=== PATIENT | male | born 1955 | race Caucasian/White ===

== ENCOUNTER → 2016-05-11 | Outpatient (CLI) | payer BC ==
[~2016-05-11] MED LIST: CMD5 PO; VNTHFA/IN INH; WARF5TAB7 PO
--- NOTE | 2016-05-11 14:23 | DIAGNOSTIC IMAGING REPORT ---
RIGHT FINGER(S) MIN 2 VIEWS ROUTINE CLINICAL HISTORY: Right thumb pain. Trigger thumb COMPARISON: None. DISCUSSION: No fractures or subluxations are visualized. There are mild degenerative changes the level the first metacarpal phalangeal joint. There are no erosive or destructive changes. If there is clinical concern over the presence of a ligamentous injury, stress views or an MRI could be obtained in follow-up IMPRESSION: No fractures or subluxations identified. Electronically signed by: Ru Rasmussen M.D. 05/11/2016 2:21 PM Dictated Date/Time: 05/11/2016 2:19 PM
== END | disposition home or self-care (01) ==
LOC: C.RAD1850 14:05
PROVIDERS: ATTEND Allergy & Immunology Allergy
DX: M79.646 Pain in unspecified finger(s) (principal); M65.319 Trigger thumb, unspecified thumb

== ENCOUNTER → 2016-05-30 | Outpatient (CLI) | payer BC ==
--- NOTE | 2016-06-04 19:24 | POLYSOMNOGRAPH REPORT ---
CLINICAL DATA: 60-year-old male with BMI of 30 referred by Augustina Doty and myself with a history of snoring, difficulty falling asleep and awakening still feeling tired. On the evening of 05/30/2016, a home sleep apnea test was performed using a [employer] type 3 monitor. RECORDING RESULTS: Total recording time was 10 hours. The patient's estimated sleep time and patient monitoring time was 7.3 hours. RESPIRATORY DATA: Moderate sleep apnea was documented. The BRIGHT was 16.5. There were 44 obstructive and 1 central apneic episode. There were 75 hypopneic episodes. The longest respiratory event was 47 seconds. OXIMETRY DATA: Nocturnal hypoxemia was seen. Oxygen christiane was 77%. Mean saturation was 92%. Time below 89% was 24 minutes. HEART RATE DATA: Heart rates ranged from 67-84 beats per minute. SNORING DATA: Snoring was recorded throughout the night. IMPRESSION: Moderate sleep apnea/hypopnea with an BRIGHT of 16.5 with nocturnal hypoxemia with an oxygen christiane of 77%. RECOMMENDATIONS: The patient may benefit from a repeat sleep study with CPAP or use of an oral appliance. Clinical correlation is needed. SUSSYD
== END | disposition home or self-care (01) ==
LOC: C.NEUR 09:53
PROVIDERS: ATTEND Allergy & Immunology Allergy
DX: G47.30 Sleep apnea, unspecified (principal); R06.83 Snoring; R09.02 Hypoxemia

== ENCOUNTER → 2016-06-11 | Outpatient (CLI) | payer BC ==
--- NOTE | 2016-06-12 06:28 | PAP/PSG TECHNICIAN REPORT ---
[facility] B Operator Polysomnogram Report Study name: None Report date: 06/12/2016 Study date: 06/11/2016 Referring Physician: Augustina Doty PA-C Name: ZHANNA DUMONT Interpreting Physician: Pramod Hwang M.D. Date of : 1955 B Operator: Afsaneh Hendricks RPSGT. Sex: Male Age: 60 Study Type: PSG PAP Weight: 192 lbs Height: 60 years, Height 5' 7" BMI: 30.07 Medications: WARFARIN 5 MG Patient History 60 yr-old male here for a new CPAP treatment study. He was found to be positive for GALINDO via a home sleep study. His AHI was 16. He chose a Mirage FX Soft edge nasal mask size standard from [employer]. Due to mouth breathing and a stuffy nose, he then switched to a Quattro Air full face mask size medium from [employer]. The test was started on room air and 4 CMH2O. ETCO2 testing was not utilized during this study. Room 1 Parameters Monitored NPSG: E1-M2, E2-M1, Fp1-M2, Fp2-M1, F3-M2, F4-M2, F4-M1, C3-M2, C4-M2, C4-M1, O1-M2, O2-M2, O2-M1, T3-M2, T4-M1, P3-M2, P4-M1, CHIN1, CHIN2, HR, EKG, Legs, PFLOW, SNOR, FLOW, CFLOW, Tidal Volume, THOR, ABDO, SpO2, PLTH, CPRESS, ETCO2 Wave, ETCO2, pH Sleep Architecture Sleep Stages Time at Lights Off 10:26:40 PM STAGES Time (min.) TST (%) Time at Lights On 5:25:40 AM Wake 61.5 -- Total Recording Time (TRT) 419.00 min. N1 23.5 7 Total Sleep Period (TSP) 403.5 min. N2 223.5 63 Total Sleep Time (TST) 357.5min. N3 28.5 8 Awake Time 61.5 min. REM 82.0 23 Wake after Sleep Onset 49.0 min. Sleep Efficiency (SE) 85 % Sleep Onset Latency (RICH) 12.5 min. Number of Stage 1 Shifts None Awakenings 11 Stage Changes 86 Number of REM periods 5 REM 82.0 23 REM Latency 72.5 min. NREM 275.5 77 Body Position Analysis Supine Right Left Side Prone Vertical Total Sleep Time (min.) 221.4 0.0 157.5 157.50 0.0 0.0 Total Sleep Time (%) 56% 0% 44% 44 0% N/A% Total Sleep Time REM (min.) 54.5 0.0 27.5 None 0.0 0.0 Total Sleep Time NREM (min.) 145.5 0.0 130.0 None 0.0 0.0 Intermittent Wake (min.) 21.4 17.1 23.0 None 0.0 0.0 Total Sleep Period (%) 54% None None None None None Arousals Myoclonus (PLM) * Events Count Index Events Count Index Spontaneous 26 4 Events Awake (PLMW) 49 47.8 Respiratory 24 4.2 Events Asleep w/ Arousal (PLMA) 5 0.8 PLM 5 1 Events Asleep w/o Arousal (PLMS) 167 28.0 Snoring 0 0 Total Asleep 172 28.9 Total 55 9 Total 221 32 Respiratory Analysis * CA OA MA CH H RERA Total Count 4 14 0 0 29 0 47 Index 0.7 2.3 0.0 0 4.9 0 7.9 Mean Duration 13.0 22.0 0.0 0.00 24.8 0.0 23.0 Longest Duration 17.6 34.6 0.0 0.00 0.0 0.0 47.9 Respiratory Event Summary Total Supine ~Supine Right Left Prone REM NREM Apneas Count 18 12 6 N/A 6 N/A 0 18 Index 3.0 4 2 N/A 2.3 N/A 0 4 Hypopneas (4% Desat) Count 29 28 1 N/A 1 N/A 3 26 Index 4.9 8.4 0 N/A 0.4 N/A 2.2 5.7 Apneas & All Hypopneas Count 47 40 7 N/A 7 N/A 3 44 Index 7.9 12 3 N/A 3 N/A 2.2 9.6 Respiratory Events ([employer]+All Hyp+RERA) Count 47 40 7 N/A 7 N/A 3 44 Index 7.9 12 3 N/A 2.7 N/A 2.2 9.6 Respiratory Related Arousal Count 24 40 1 N/A 1 N/A 1 24 Index 4.2 7 0 N/A 0 N/A 1 5 Snoring Analysis Supine Right Left Prone REM NREM Total Snore duration 4.6 min Snores count 168 N/A 5 N/A 4 169 173 Snore mean duration 1.6 Sec Snores index 50 N/A 2 N/A 2.9 36.8 29.0 TST with snoring (%) 1.3% Desaturation Event Summary: Minimum %SpO2 Event Count Mean/Min/Max Duration(sec.) Desaturation Index % Time In Bed > 90 61 29.9 / 6.8 / 55.8 11.6 76.6 86 - 90 15 18.8 / 6.8 / 41.0 10.1 21.7 81 - 85 0 N/A 0.0 1.5 76 - 80 0 N/A 0.0 0.3 71 - 75 0 N/A 0.0 0.0 66 - 70 0 N/A 0.0 0.0 61 - 65 0 N/A 0.0 0.0 56 - 60 0 N/A 0.0 0.0 51 - 55 0 N/A 0.0 0.0 < 50 0 N/A 0.0 0.0 Total REM NREM Awake <50% 0.0 min. 0.0 min. 0.0 min. 0.0 min. 51 - 60% 0.0 min. 0.0 min. 0.0 min. 0.0 min. 61 - 70% 0.0 min. 0.0 min. 0.0 min. 0.0 min. 71 - 80% 1.1 min. 0.0 min. 1.1 min. 0.0 min. 81 - 90% 95.5 min. 17.7 min. 75.8 min. 2.0 min. 91 - 100% 315.5 min. 64.3 min. 198.5 min. 52.7 min. Average 92 92 91 93 Minimum SpO2 78 86 78 81 Desaturation Event Index 9.2 3.7 12.2 2.9 # Desat. Events below 89% 44 4 40 0 Time(%) with Saturation below 89% 4.2 0.9 3.0 0.3 Time(min.) with Saturation below 89% 17.2 3.6 12.5 1.1 Time (mins) REM (mins) NREM (mins) % of TST SpO2 Below 90% 54 5 N49 9.6 SpO2 Below 88% 22 0 0 3 Heart Rate Analysis Min (bpm) Max (bpm) Average (bpm) Awake 43 106 86 NREM 72 102 86 REM 74 109 83 Overall 72 109 85 Supplemental O2 Values Minimum O2 level: None Value Start Time End Time B Operator Comments Mr. Dumont slept in the right, left, and supine positions. No cardiac arrhythmias were noted. PLMs were noted. No bruxism noted. CPAP was initiated at +4 CMH2O and up-titrated to a level of +10 CMH2O, Cflex 3. A Quattro Air full face mask size medium from [employer] was used during titration He awoke to use the restroom one time during the night. Mr. Dumont stated that he slept better than usual. The final report will be interpreted and signed by a sleep physician. The completed physician report will then be placed in the patient medical record. Therapy Event: Therapy (cm H20) 4 5 7 9 10 Total Time at Pressure (min.) 124.1 210.0 26.4 19.4 39.1 TST at Pressure (min.) 109.6 175.5 26.4 19.4 26.6 # Periods 1 1 1 1 1 Sleep Onset (min.) 12.5 0.0 0.0 0.0 0.0 REM Onset (min.) 85.0 52.4 N/A 18.0 0.0 Sleep Efficiency % 88 83 100 100 68 Wakefulness (%) 11.7 16.4 0.0 0.0 32.0 Wakefulness (min.) 14.5 34.5 0.0 0.0 12.5 NREM 1 (%) 6.4 4.1 12.9 12.9 2.6 NREM 1 (min.) 8.0 8.6 3.4 2.5 1.0 NREM 2 (%) 49.2 59.0 87.1 79.8 0.0 NREM 2 (min.) 61.1 123.9 23.0 15.5 0.0 NREM 3 (%) 21.0 1.2 0.0 0.0 0.0 NREM 3 (min.) 26.0 2.5 0.0 0.0 0.0 REM (%) 11.7 19.3 0.0 7.3 65.5 REM (min.) 14.5 40.5 0.0 1.4 25.6 # Arousals 14 19 12 6 4 Arousal Index 7.7 6.5 27.2 18.6 9.0 # Snore 5 26 64 75 3 Snore Index 2.7 8.9 145.3 232.0 6.8 AHI 6.6 2.7 36.3 34.0 0.0 AHI Supine 6.7 5.8 36.3 34.0 0.0 AHI Non-Supine 6.5 0.0 N/A N/A N/A NREM AHI 6.9 2.7 36.3 36.7 0.0 REM AHI 4.1 3.0 N/A 0.0 0.0 RDI 6.6 2.7 36.3 34.0 0.0 # Obstructive 2 1 9 2 0 # Central Ap 4 0 0 0 0 # Mixed 0 0 0 0 0 # Hypopneas 6 7 7 9 0 RERAS 0 0 0 0 0 Total Respiratory Events 12 8 16 11 0 Time Below SpO2 89.00% (min.) 3.7 3.4 6.5 2.6 0.0 Mean NREM SpO2 (%) 91 91 90 92 93 Mean REM SpO2 (%) 90 92 N/A 92 93 Mean Sleep SpO2 (%) 91 91 90 92 93 Min NREM SpO2 (%) 82 83 78 78 90 Min REM SpO2 (%) 87 86 N/A 91 91 Position Supine (min.) 45.1 82.5 26.4 19.4 26.6 Position Non-supine (min.) 64.5 93.0 0.0 0.0 0.0 LM Index Sleep 6.6 33.8 90.8 34.0 22.6 LM Index NREM 6.9 40.0 90.8 36.7 60.0 LM Index REM 4.1 13.3 N/A 0.0 21.1 Mean Heart Rate (bpm) 84 86 86 85 84 Min Heart Rate (bpm) 72 74 79 75 76
--- NOTE | 2016-06-12 14:24 | POLYSOMNOGRAPH REPORT ---
CLINICAL DATA: 60-year-old male with BMI of 30 referred by Augustina Doty and myself for a CPAP titration study. He had a home sleep apnea test which showed moderate sleep apnea with an BRIGHT of 16. He chose a Mirage FX soft edge nasal mask size standard from [employer], but due to mouth breathing, he switched to a Quattro full face mask size medium from [employer]. SLEEP ARCHITECTURE: Total sleep period was 403.5 minutes. Total sleep time was 357.5 minutes divided between 275.5 minutes of non-REM sleep and 82 minutes of REM sleep. Sleep onset latency was 12.5 minutes. REM latency was 72.5 minutes. Sleep efficiency was 85%. Wake after sleep onset was 49 minutes. Sleep consisted of stage N1 7%, N2 62%, N3 8%, REM 23%. AROUSAL DATA: 55 arousals were recorded for an index of 9 per hour. PLM DATA: 172 limb movements during sleep were noted for an index of 28.9 per hour with arousal index of 0.8 per hour. RESPIRATORY DATA: The AHI was 7.9. There were 4 central and 14 obstructive apneic episodes. The longest apneic episode was 34.6 seconds. There were 29 hypopneic episodes. The mean duration of hypopnea was 24.8 seconds. OXIMETRY DATA: Nocturnal hypoxemia was seen. Oxygen christiane was 78% during non-REM sleep. The mean saturation was 92%. Time below 88% was 22 minutes. EKG: Heart rates ranged from 72-109 beats per minute. No arrhythmias were noted. [employer] COMMENTS AND TREATMENT SUMMARY: The patient slept in the right, left and supine positions. CPAP was started using the above noted interface and was titrated up to a final pressure setting of 10 cm of water pressure, C-Flex setting #3. At this final pressure setting, he slept for 26.6 minutes with an AHI of 0. IMPRESSION: Moderate obstructive sleep apnea/hypopnea and nocturnal hypoxemia corrected with CPAP 10 cm of water pressure, C-Flex setting #3, Quattro Air full facemask size medium from [employer]. RECOMMENDATIONS: The patient will be started on the above noted treatment regimen and seen back in followup within 90 days to document efficacy and compliance. [facility]
== END | disposition home or self-care (01) ==
LOC: C.NEUR 20:00
PROVIDERS: ATTEND Allergy & Immunology Allergy
DX: R53.83 Other fatigue (principal); R06.83 Snoring

== ENCOUNTER → 2016-11-02 | Outpatient (CLI) | payer BC ==
--- NOTE | 2016-11-02 10:22 | DIAGNOSTIC IMAGING REPORT ---
CHEST 2 VIEWS ROUTINE CLINICAL HISTORY: 61 years-old Male presenting with Cough, history of extensive pulmonary embolic disease. TECHNIQUE: PA and lateral views of the chest were obtained. COMPARISON: 03/11/2015. FINDINGS: Cardiomediastinal silhouette normal. Lungs and pleural spaces clear. Osseous structures and upper abdomen normal. IMPRESSION: 1. No acute cardiopulmonary disease. Electronically signed by: Kieran Monterroso 11/02/2016 10:20 AM Dictated Date/Time: 11/02/2016 10:19 AM
== END | disposition home or self-care (01) ==
LOC: C.RAD1850 09:51
PROVIDERS: ATTEND Physician Assistant Medical
DX: R05 Cough (principal)

== ENCOUNTER 2016-11-22 12:25 | Emergency (ER) | payer BC ==
[~2016-11-22] VITALS: Ht 172.7 cm; Wt 82.0 kg
[~2016-11-22 12:25] MED LIST changes: -VNTHFA/IN INH
[2016-11-22 12:34] VITALS: TEMP 36.4; Ht 172.7 cm; Wt 82.0 kg
[2016-11-22] MEDS ORDERED: SODIUM CHLORIDE 0.9% 1000ML 500 ML IV STA (12:45)
[2016-11-22 12:50] VITALS: O2SAT 98
[2016-11-22 13:02] LABS: BASO % 0.2 %; BASO ABS # 0.01 K/uL (0-0.2); COMPLETE YES; EOS % 1.6 %; HEMATOCRIT 44.7 % (42-52); IG% 0.2 %; LYMPH % 24.8 %; LYMPH ABS # 1.25 K/uL (1.2-3.4); MEAN CELL VOLUME 83.2 fL (80-100); MEAN CORPUSCULAR HEMOGLOBIN 29.1 pg (25-34); MEAN CORPUSCULAR HGB CONC 34.9 g/dl (32-36); MONO % 6.5 %; NEUT % 66.7 %; PLATELET COUNT 214 K/uL (130-400); RED BLOOD COUNT 5.37 M/uL (4.7-6.1); WHITE BLOOD COUNT 5.05 K/uL (4.8-10.8)
[2016-11-22 13:14] LABS: INR 2.5 (0.9-1.1); PARTIAL THROMBOPLASTIN RATIO 1.5; PROTHROMBIN TIME (PATIENT) 27.3 SECONDS (9.0-12.0)
[2016-11-22 13:18] LABS: ALT/SGPT 30 U/L (12-78); BLOOD UREA NITROGEN 14 mg/dl (7-18); BUN/CREATININE RATIO 14.8 (10-20); CALCIUM 9.5 mg/dl (8.5-10.1); CARBON DIOXIDE 28 mmol/L (21-32); CHLORIDE 106 mmol/L (98-107); CREATININE 0.94 mg/dl (0.60-1.40); GLUCOSE 90 mg/dl (70-99); POTASSIUM 3.5 mmol/L (3.5-5.1); SODIUM 142 mmol/L (136-145)
[2016-11-22 13:23] LABS: ALB/GLOB RATIO 1.1 (0.9-2); ALKALINE PHOSPHATASE 69 U/L (45-117); AST/SGOT 18 U/L (15-37)
[2016-11-22] MEDS ORDERED: OPTIRAY 320 IV PRN (13:45)
--- NOTE | 2016-11-22 13:49 | EMERGENCY ROOM VISIT NOTE ---
History Report prepared by Cecil: Delfino Malcolm Under the Supervision of: Dr. Judson Jack M.D. First contact with patient: 12:40 Chief Complaint: RESPIRATORY PROBLEMS Stated Complaint: DIFFICULTY BREATHING, DIZZY History of Present Illness The patient is a 61 year old male who presents to the Emergency Room with complaints of worsening shortness of breath beginning three days ago. The patient states that when he breaths, it feels like he is breathing through a towel or has a plastic bag over his head. He reports that he has a history of a PE, and his current symptoms are similar. The patient notes that he currently takes Warfarin daily, and his last INR check was normal. He states that he flew to [place] a week ago for his daughter's wedding. The patient reports that he did walk around occasionally on the plane. He notes that he became dizzy this morning when he was moving around. The patient states that three weeks ago he had bronchitis and was place on an antibiotic and steroids. He reports that he finished his medications a week ago. The patient denies a cold, cough, congestion, chest pain with breathing, fever, a history of MD and smoking. Source of History: patient Onset: three days ago Position: other (global) Quality: other (shortness of breath) Timing: worsening Associated Symptoms: No cough, No chest pain (upon breathing) Note: Associated symptoms: dizziness Denies: congestion and cold Review of Systems See HPI for pertinent positives & negatives. A total of 10 systems reviewed and were otherwise negative. Past Medical & Surgical Medical Problems: (1) Deep vein blood clot of left lower extremity (2) Pulmonary embolism Family History Patient reports no known family medical history. Social History Smoking Status: Never Smoker Alcohol Use: occasionally Drug Use: none Occupation Status: employed Current/Historical Medications Scheduled Warfarin Sod (Coumadin), 5 MG PO 3XWK Warfarin Sod (Jantoven), 2.5 MG PO 4XWK Allergies Coded Allergies: No Known Allergies (Verified Allergy, Unknown, 06/11/02) Physical Exam Vital Signs Date Time Temp Pulse Resp B/P (MAP) Pulse Ox O2 Delivery O2 Flow Rate FiO2 11/22/16 14:28 72 18 110/65 97 11/22/16 12:57 77 11/22/16 12:54 98 Room Air 11/22/16 12:50 98 Room Air 11/22/16 12:34 36.4 73 18 117/74 98 Room Air Physical Exam GENERAL: Patient is in no acute distress. HEENT: No acute trauma, normocephalic atraumatic, mucous membranes moist, no nasal congestion, no scleral icterus. NECK: No stridor, no adenopathy, no meningismus, trachea is midline. LUNGS: Clear to auscultation bilaterally, no wheeze, no rhonchi, breath sounds equal. HEART: Without murmurs gallops or rubs, regular rate and rhythm. ABDOMEN: Soft, nontender, bowel sounds positive, no hernias, no peritonitis. EXTREMITIES: No cyanosis or edema, full range of motion of all the joints without pain or difficulty, no signs for acute trauma. NEUROLOGIC: Oriented x 3, no acute motor or sensory deficits, no focal weakness. SKIN: No rash, no jaundice, no diaphoresis. Medical Decision & Procedures ER Provider Diagnostic Interpretation: CT results as stated below per my review and radiologist interpretation: (CHEST FOR PE) ANGIO WITH CT DOSE: 322.62 mGy.cm HISTORY: Chest pain dyspnea TECHNIQUE: Multiaxial CT images of the chest were performed following the intravenous administration of contrast to evaluate the pulmonary arteries. Maximal intensity projection images were also obtained. A dose lowering technique was utilized adhering to the principles of ALARA. COMPARISON STUDY: None. FINDINGS: There is a normal caliber thoracic aorta with no evidence for dissection. There is no evidence for pulmonary embolus. No pleural effusions. No pneumothorax. The liver and spleen are unremarkable. No mediastinal or hilar lymphadenopathy. The central airways are patent. The lungs are clear. IMPRESSION: No evidence for pulmonary embolus. . The lungs are clear. The above report was generated using voice recognition software. It may contain grammatical, syntax or spelling errors. Electronically signed by: Ko Nguyen M.D. 11/22/2016 1:57 PM Dictated Date/Time: 11/22/2016 1:54 PM Laboratory Results 11/22/16 12:50 Red Blood Count 5.37, Mean Corpuscular Volume 83.2, Mean Corpuscular Hemoglobin 29.1, Mean Corpuscular Hemoglobin Concent 34.9, Mean Platelet Volume 9.0, Neutrophils (%) (Auto) 66.7, Lymphocytes (%) (Auto) 24.8, Monocytes (%) (Auto) 6.5, Eosinophils (%) (Auto) 1.6, Basophils (%) (Auto) 0.2, Neutrophils # (Auto) 3.37, Lymphocytes # (Auto) 1.25, Monocytes # (Auto) 0.33, Eosinophils # (Auto) 0.08, Basophils # (Auto) 0.01 11/22/16 12:50 Test 11/22/16 12:50 White Blood Count 5.05 K/uL (4.8-10.8) Red Blood Count 5.37 M/uL (4.7-6.1) Hemoglobin 15.6 g/dL (14.0-18.0) Hematocrit 44.7 % (42-52) Mean Corpuscular Volume 83.2 fL (80-100) Mean Corpuscular Hemoglobin 29.1 pg (25-34) Mean Corpuscular Hemoglobin Concent 34.9 g/dl (32-36) Platelet Count 214 K/uL (130-400) Mean Platelet Volume 9.0 fL (7.4-10.4) Neutrophils (%) (Auto) 66.7 % Lymphocytes (%) (Auto) 24.8 % Monocytes (%) (Auto) 6.5 % Eosinophils (%) (Auto) 1.6 % Basophils (%) (Auto) 0.2 % Neutrophils # (Auto) 3.37 K/uL (1.4-6.5) Lymphocytes # (Auto) 1.25 K/uL (1.2-3.4) Monocytes # (Auto) 0.33 K/uL (0.11-0.59) Eosinophils # (Auto) 0.08 K/uL (0-0.5) Basophils # (Auto) 0.01 K/uL (0-0.2) RDW Standard Deviation 39.1 fL (36.4-46.3) RDW Coefficient of Variation 13.2 % (11.5-14.5) Immature Granulocyte % (Auto) 0.2 % Immature Granulocyte # (Auto) 0.01 K/uL (0.00-0.02) Prothrombin Time 27.3 SECONDS (9.0-12.0) Prothromb Time International Ratio 2.5 (0.9-1.1) Activated Partial Thromboplast Time 38.8 SECONDS (21.0-31.0) Partial Thromboplastin Ratio 1.5 Anion Gap 8.0 mmol/L (3-11) Est Creatinine Clear Calc Drug Dose 77.8 ml/min Estimated GFR () 99.6 Estimated GFR (Non- 85.9 BUN/Creatinine Ratio 14.8 (10-20) Calcium Level 9.5 mg/dl (8.5-10.1) Total Bilirubin 0.9 mg/dl (0.2-1) Aspartate Amino Transf (AST/SGOT) 18 U/L (15-37) Alanine Aminotransferase (ALT/SGPT) 30 U/L (12-78) Alkaline Phosphatase 69 U/L (45-117) Troponin I < 0.015 ng/ml (0-0.045) Total Protein 7.2 gm/dl (6.4-8.2) Albumin 3.7 gm/dl (3.4-5.0) Globulin 3.5 gm/dl (2.5-4.0) Albumin/Globulin Ratio 1.1 (0.9-2) Laboratory results reviewed by me. Medications Administered Medications (Trade) Dose Ordered Sig/Jay Route Start Time Stop Time Status Last Admin Dose Admin Sodium Chloride 500 ml @ 999 mls/hr Q31M STAT IV 11/22/16 12:45 11/22/16 13:15 DC 11/22/16 12:45 999 MLS/HR Albuterol (Ventolin Hfa Inhaler) 60 puffs STK-MED ONCE INH 11/22/16 14:20 11/22/16 14:21 DC 11/22/16 14:28 60 PUFFS ECG Indication: SOB/dyspnea Rate (beats per minute): 81 Rhythm: normal sinus Findings: no acute ischemic change, no ectopy ED Course 1241: The patient was evaluated in room C08. A complete history and physical exam was performed. 1245: Ordered Sodium Chloride 500 ml @ 999 mls/hr IV 1413: Reevaluated the patient. Discussed results and discharge instructions: he verbalized understanding and agreement. The patient is ready for discharge when he receives his medication. 1420: Ordered Albuterol 60 puffs INH Medical Decision Differential diagnosis includes: pulmonary emboli, bronchitis, CHF, pneumonia, anemia, dehydration, generalized infection, electrolyte imbalance, MD There is no leukocytosis or concerning anemia. No significant electrolyte abnormality, kidney failure or hepatitis. INR is therapeutic for someone using Coumadin. EKG shows a sinus rhythm, no acute ischemia. Cardiac enzyme testing times one is not consistent with acute cardiac injury. Chest CT does not show PE, there was no pneumonia or evidence for aortic dissection. Patient received IV saline, he has done well. He is not hypoxic, he is not toxic or febrile. The patient was reassured by his testing. As he just had bronchitis, he may be having some residual bronchospasm causing his difficulty breathing. He will be discharged on albuterol to see how he feels in the next couple of days. He will return here for any worsening symptoms. He was advised to follow with his doctor's office. Impression Primary Impression: SOB (shortness of breath) Scribe Attestation The scribe's documentation has been prepared under my direction and personally reviewed by me in its entirety. I confirm that the note above accurately reflects all work, treatment, procedures, and medical decision making performed by me. Departure Information Dispostion Home / Self-Care Referrals Pramod Hwang M.D. (PCP) Forms HOME CARE DOCUMENTATION FORM, WORK / SCHOOL INSTRUCTIONS Patient Instructions My [facility] Report Additional Instructions try albuterol with spacer 2-3 puffs every 6 hours as needed to help the breathing see chery garces in a few days for a recheck return for fever or worsening breathing or chest pain lab testing and CT scan today were ok
--- NOTE | 2016-11-22 13:58 | DIAGNOSTIC IMAGING REPORT ---
(CHEST FOR PE) ANGIO WITH CT DOSE: 322.62 mGy.cm HISTORY: Chest pain dyspnea TECHNIQUE: Multiaxial CT images of the chest were performed following the intravenous administration of contrast to evaluate the pulmonary arteries. Maximal intensity projection images were also obtained. A dose lowering technique was utilized adhering to the principles of ALARA. COMPARISON STUDY: None. FINDINGS: There is a normal caliber thoracic aorta with no evidence for dissection. There is no evidence for pulmonary embolus. No pleural effusions. No pneumothorax. The liver and spleen are unremarkable. No mediastinal or hilar lymphadenopathy. The central airways are patent. The lungs are clear. IMPRESSION: No evidence for pulmonary embolus. . The lungs are clear. The above report was generated using voice recognition software. It may contain grammatical, syntax or spelling errors. Electronically signed by: Ko Nguyen M.D. 11/22/2016 1:57 PM Dictated Date/Time: 11/22/2016 1:54 PM
[2016-11-22] MEDS ORDERED: ALBUTEROL HFA 8 GM INHALER INH ONE (14:20)
[2016-11-22 14:28] VITALS: BP 110/65; PULSE 72; O2SAT 97
[2016-12-12] MEDS ORDERED: VNTHFA/IN INH (13:27)
== END 2016-11-22 14:30 | disposition home or self-care (01) ==
LOC: C.EDB 12:27 → C.EDC 14:30
DX: R06.02 Shortness of breath (principal); I26.99 Other pulmonary embolism without acute cor pulmonale; Z79.01 Long term (current) use of anticoagulants

== ENCOUNTER → 2017-03-18 | Day surgery (SDC) | payer BC ==
[2017-03-05 11:55] VITALS: BMI 26.0
[~2017-03-18] VITALS: Ht 172.7 cm; Wt 79.5 kg
[~2017-03-18] MED LIST changes: +ATROPINE SULFATE 0.1 MG/ML 5ML SYR IV PRN; +ENOX40IN SQ; +EpHEDrine SULFATE INJ 50 MG/ML AMP IV PRN; +PROPOFOL IV EMULSION 10 MG/ML 20 ML VIAL IV ONE; +SODIUM CHLORIDE 0.9% 500ML 500 ML IV ONE; +VNTHFA/IN INH; +WARF-246 PO; -WARF5TAB7 PO
[2017-03-18 14:09] VITALS: Ht 172.7 cm; Wt 79.5 kg
--- NOTE | 2017-03-18 14:30 | Endo History and Physical ---
History & Physical Date of Service: Mar 18, 2017. Chief Complaint: SCREENING FOR COLON CA Referring Physician: DR. LINCOLN MONSIVAIS History of Present Illness 61 yo CM who presents for screening colonoscopy. Past Medical History Pulmonary Emboli, Thrombophlebitis Past Surgical History Hx Cardiac Surgery: No Hx Internal Defibrillator: No Hx Pacemaker: No Hx Abdominal Surgery: Yes (left inguinal hernia repair,) Hx of Implantable Prosthesis: No Hx Post-Op Nausea and Vomiting: No Hx Cancer Surgery: No Hx Thoracic Surgery: No Hx Orthopedic: Yes (right trigger thumb) Hx Urinary Tract Surgery: No Family History None Social History Smoking Status: Never Smoker Hx Substance Use: No Hx Alcohol Use: Yes (rare) Allergies Coded Allergies: No Known Allergies (Verified , 03/05/17) Current Medications Reported Home Medications Medications Dose Route/Sig Max Daily Dose Days Date Category Dose Instructions Lovenox (Enoxaparin Sodium) 40 Mg/0.4 Ml Inj 40 Mg SQ DAILY 03/18/17 Reported Warfarin Sodium 5 Mg Tab 2.5 Mg PO SUN,T,TH,SAT 90 03/05/17 Reported Ventolin Hfa (Albuterol) 200 Puffs/58881 Mcg Aers 2 Puffs INH Q6H PRN 12/12/16 Reported Coumadin (Warfarin Sod) 5 Mg Tab 5 Mg PO 3XWK 05/03/15 Reported Mo/We/Fr Vital Signs Weight (Kilograms): 79.55 Height (Feet): 5 Height (Inches): 8 Physical Exam General Appearance: WD/WN, no apparent distress Respiratory/Chest: Auscultation: breath sounds normal Cardiovascular: Heart Auscultation: RRR Abdomen: Bowel Sounds: normal Inspection & Palpation: soft, non-distended, no tenderness, guarding & rebound Assessment and Plan Assessment: 61 yo CM who presents for screening colonoscopy. Plan: Proceed with colonoscopy
--- NOTE | 2017-03-18 15:05 | Discharge Instructions ---
Endoscopy Patient Instructions Date / Procedure(s) Performed Mar 18, 2017. Colonoscopy Allergy Information Coded Allergies: No Known Allergies (Verified , 03/05/17) Discharge Date / Findings Mar 18, 2017. Colon polyps Internal hemorrhoids Medication Instructions Stopped Medication(s): WARFARIN LOVENOX OK to resume all medications today as prescribed Reported Home Medications Medications Dose Route/Sig Max Daily Dose Days Date Category Dose Instructions Lovenox (Enoxaparin Sodium) 40 Mg/0.4 Ml Inj 40 Mg SQ DAILY 03/18/17 Reported Warfarin Sodium 5 Mg Tab 2.5 Mg PO SUN,T,TH,SAT 90 03/05/17 Reported Ventolin Hfa (Albuterol) 200 Puffs/07219 Mcg Aers 2 Puffs INH Q6H PRN 12/12/16 Reported Coumadin (Warfarin Sod) 5 Mg Tab 5 Mg PO 3XWK 05/03/15 Reported Mo/We/Fr Provider Instructions Activity Restrictions - No exercising or heavy lifting for 24 hours. - Do not drink alcohol the day of the procedure. - Do not drive a car or operate machinery until the day after the procedure. - Do not make any important decisions or sign important papers in 24 hours after the procedure. Following Day: - Return to full activity which may include returning to work/school. Diet Start your diet with liquids and light foods (jello, soup, juice, toast). Then eat your usual diet if not nauseated. Treatment For Common After Affects For mild abdominal pain, bloating, or excessive gas: - Rest - Eat lightly - Lie on right side Follow-Up Information Follow-up with DR. LINCOLN MONSIVAIS as scheduled Anesthesia Information What You Should Know You have had a procedure that required some medicine to reduce anxiety and discomfort. This treatment is called moderate sedation. After receiving the treatment, you may be sleepy, but you will be able to breathe on your own. The effects of the treatment may last for several hours. Follow these instructions along with Activity/Diet recommendations noted above: * Do NOT do anything where dizziness or clumsiness would be dangerous. * Rest quietly at home today, then you can be up and about tomorrow. * Have a responsible person stay with you the rest of today. * You may have had an I.V. today. If so, you may take the dressing off later today. Recommendations Call your doctor if: * Trouble breathing * Continuous vomiting for more than 24 hours * Temperature above 101 degrees * Severe abdominal pain or bloating * Pain not relieved by pain medicine ordered * There is increased drainage or redness from any incision * A large amount of rectal bleeding greater than 2-3 tablespoons. (If you had a polyp/s removed or have hemorrhoids, a small amount of blood - from the rectum is to be expected.) * You have any unanswered questions or concerns. IN THE EVENT OF A SERIOUS EMERGENCY, GO TO THE NEAREST EMERGENCY ROOM Your discharge instructions were prepared by provider Evan Arboleda. Patient Instructions Signature Page Mikael Dominguez Patient (or Guardian) Signature/Date: I have read and understand the instructions given to me by my caregivers. Caregiver/RN/Doctor Signature/Date: The above-named patient and/or guardian has received patient instructions on this date. + Original Patient Signature Page (only) stays with chart. Please make copy for patient.
--- NOTE | 2017-03-18 15:10 | GI REPORT ---
Procedure Date: 03/18/2017 2:49 PM Procedure: Colonoscopy Indications: Screening for colorectal malignant neoplasm Medicines: Monitored Anesthesia Care Complications: No immediate complications. Estimated Blood Loss: Estimated blood loss: none. Procedure: Pre-Anesthesia Assessment: - Prior to the procedure, a History and Physical was performed, and patient medications and allergies were reviewed. The patient's tolerance of previous anesthesia was also reviewed. The risks and benefits of the procedure and the sedation options and risks were discussed with the patient. All questions were answered, and informed consent was obtained. Prior Anticoagulants: The patient last took Coumadin (warfarin) 5 days and Lovenox (enoxaparin) 1 day prior to the procedure. ASA Grade Assessment: II - A patient with mild systemic disease. After reviewing the risks and benefits, the patient was deemed in satisfactory condition to undergo the procedure. After I obtained informed consent, the scope was passed under direct vision. Throughout the procedure, the patient's blood pressure, pulse, and oxygen saturations were monitored continuously. The Scope was introduced through the anus and advanced to the terminal ileum. The colonoscopy was performed without difficulty. The patient tolerated the procedure well. The quality of the bowel preparation was good. The terminal ileum, ileocecal valve, appendiceal orifice, and rectum were photographed. Findings: Three sessile polyps were found in the rectum, in the sigmoid colon and in the transverse colon. The polyps were 5 to 7 mm in size. These polyps were removed with a hot snare. Resection and retrieval were complete. A 15 mm polyp was found in the sigmoid colon. The polyp was pedunculated. The polyp was removed with a hot snare. Resection and retrieval were complete. Non-bleeding internal hemorrhoids were found during retroflexion. The hemorrhoids were small. Impression: - Three 5 to 7 mm polyps in the rectum, in the sigmoid colon and in the transverse colon, removed with a hot snare. Resected and retrieved. - One 15 mm polyp in the sigmoid colon, removed with a hot snare. Resected and retrieved. - Non-bleeding internal hemorrhoids. Recommendation: - Resume previous diet. - Continue present medications. - Repeat colonoscopy for surveillance based on pathology results. - Return to primary care physician as previously scheduled. Evan Arboleda DO 03/18/2017 3:10:30 PM This report has been signed electronically. Note Initiated On: 03/18/2017 2:49 PM I attest to the content of the Intraoperative Record and orders documented therein, exceptions below
--- NOTE | 2017-03-18 15:20 | Anesthesiology Progress Note ---
Anesthesia Post Op Note Date & Time Mar 18, 2017 at 15:20 Vital Signs Pain Intensity: 0 Vital Signs Past 12 Hours Date Time Temp Pulse Resp B/P (MAP) Pulse Ox O2 Delivery O2 Flow Rate FiO2 03/18/17 15:10 88 18 110/70 (83) 97 Room Air 03/18/17 14:31 36.6 86 18 114/74 (87) 97 Room Air Notes Mental Status: alert / awake / arousable, participated in evaluation Pt Amnestic to Procedure: Yes Nausea / Vomiting: adequately controlled Pain: adequately controlled Airway Patency, RR, SpO2: stable & adequate BP & HR: stable & adequate Hydration State: stable & adequate Anesthetic Complications: no major complications apparent
[2017-03-18 15:39] VITALS: BP 119/74; PULSE 75; O2SAT 97
== END | disposition home or self-care (01) ==
LOC: C.GI 13:52
PROVIDERS: ATTEND Internal Medicine
DX: Z12.11 Encounter for screening for malignant neoplasm of colon (principal); D12.5 Benign neoplasm of sigmoid colon; D12.3 Benign neoplasm of transverse colon; D12.8 Benign neoplasm of rectum; K64.8 Other hemorrhoids; Z86.711 Personal history of pulmonary embolism